=== PATIENT | female | born 1980 | race Caucasian/White ===

== ENCOUNTER 2016-10-28 09:31 | Day surgery (SDC) | payer OTHER ==
[~2016-10-28] VITALS: Ht 175.3 cm; Wt 135.5 kg
[~2016-10-28 09:31] MED LIST: CYCL5TAB PO; DARV PO; Z.0.NO CURRENT MEDS
[2016-10-28] MEDS ORDERED: FLUT50SP EACH NARE (10:03)
[2016-10-28] MEDS ORDERED: TRAZ50TA12 PO (10:03)
[2016-10-28] MEDS ORDERED: CETI10 PO (10:03)
[2016-10-28] MEDS ORDERED: MEDR150I11 IM (10:03)
[2016-10-28 10:06] VITALS: BP 163/103; PULSE 104; RESP 20; TEMP 98.2; O2SAT 95
[2016-10-28] MEDS ORDERED: SODIUM CHLORIDE FLUSH PRN IV FLUSH (10:15)
[2016-10-28] MEDS ORDERED: SODIUM CHLOR 0.9% 1000 ML IV SCH (10:15)
[2016-10-28 10:29] LABS: AUTOMATED NEUTROPHIL # 11.9 TH/MM3 (1.8-7.7); BASOPHIL % 0.3 % (0.0-2.0); EOSINOPHIL # 0.5 TH/MM3 (0-0.4); EOSINOPHIL % 3.2 % (0.0-4.0); HEMATOCRIT 40.5 % (35.0-46.0); HEMO FLAGS DIFF FINAL; LYMPH % 17.4 % (9.0-44.0); LYMPHOCYTE # 2.8 TH/MM3 (1.0-4.8); MEAN CELL VOLUME 83.4 FL (80.0-100.0); MEAN CORPUSCULAR HEMOGLOBIN 27.2 PG (27.0-34.0); MEAN CORPUSCULAR HGB CONC 32.5 % (32.0-36.0); MONO % 5.1 % (0.0-8.0); PLATELET COUNT 432 TH/MM3 (150-450); RED BLOOD COUNT 4.86 MIL/MM3 (4.00-5.30); RED CELL DISTRIBUTION WIDTH 14.3 % (11.6-17.2); WHITE BLOOD COUNT 16.1 TH/MM3 (4.0-11.0)
[2016-10-28] MEDS ORDERED: LIDOCAINE 1%/EPINEPHrine 1:100,000 SOLN 20 ML VIAL ONE (11:13)
[2016-10-28] MEDS ORDERED: fentaNYL CITRATE 250 MCG/5 ML AMP ONE (11:20)
[2016-10-28] MEDS ORDERED: MIDAZOLAM HCL 5 MG/5 ML VIAL ONE (11:20)
[2016-10-28] MEDS ORDERED: BUPIVACAINE HCL PF 0.75% 10 ML VIAL ONE (11:51)
[2016-10-28] MEDS ORDERED: LORazepam 2 MG/ML VIAL ONE (11:52)
[2016-10-28 12:20] VITALS: BP 157/82; PULSE 85; RESP 20; TEMP 97.7; O2SAT 96
[2016-10-28 12:35] VITALS: BP 158/83; PULSE 82; RESP 20; O2SAT 94
--- NOTE | 2016-10-28 12:42 | RADRPT ---
EXAM DATE/TIME: 10/28/2016 11:26 [place] COMPARISON: No previous studies available for comparison. INDICATIONS : Thrombocytosis. SEDATION TIME: 30 minutes BIOPSY SITE: Right MEDICATION(S): 1.) 5 mg midazolam (Versed) IV 2.) 250 mcg fentanyl (Sublimaze) IV 3.) 1 mg lorazepam (Ativan) IV DEVICE(S): 1.) 11 gauge Bone marrow biopsy needle MEDICAL HISTORY : None. SURGICAL HISTORY : Thyroidectomy. ENCOUNTER: Initial ACUITY: 1 day PAIN SCORE: 0/10 LOCATION: Right pelvis A total of one core specimen(s) were obtained and sent to the laboratory for pathologic evaluation. PROCEDURE: 1. CT guided bone marrow biopsy. 2. Conscious sedation with continuous EKG and oximetry monitoring. 3. EKG and oximetry remained stable throughout the procedure. Prior to the procedure informed consent was obtained. Any appropriate prior imaging studies were rev iewed. Using automated exposure control and adjustment of the mA and/or kV according to patient size , radiation dose was kept as low as reasonably achievable to obtain optimal diagnostic quality images . The site was prepped in a sterile fashion. Full sterile technique was used, including cap, mask, tara rile gloves and gown and a large sterile sheet. Hand hygiene and 2% chlorhexidine and/or betadine/al cohol prep was utilized per protocol for cutaneous antisepsis. The skin and subcutaneous tissues wer e infiltrated with local anesthetic solution. With CT guidance the previously identified target was localized. Biopsy was performed using the presc ribed needle as above. Following biopsy marrow aspiration was performed with repeat puncture. Adequa te hemostasis was obtained with compression at the puncture site. Follow-up CT scan reveals no hemorrhage. Conscious sedation was performed with the prescribed dosages and duration as above in the presence of an independent trained radiology nurse to assist in the monitoring of the patient. EKG and oximetry remained stable throughout the procedure. The patient tolerated the procedure well and there were no complications. The patient was sent to Radiology Outpatient Unit in stable condition. CONCLUSION: 1. Uncomplicated CT guided bone marrow aspirate. 2. Uncomplicated CT guided bone marrow biopsy. Zechariah Ann MD FACR on October 28, 2016 at 12:39 Board Certified Radiologist. This report was verified electronically.
[2016-10-28 13:03] LABS: BONE MARROW PROCESSING COMPLETE; IRON STAIN DONE; JENNER GIEMSA STAIN DONE
[2016-10-28 13:05] VITALS: BP 155/79; PULSE 80; RESP 20; O2SAT 100
[2016-10-28 13:35] VITALS: BP 159/92; PULSE 97; RESP 20; O2SAT 100
[2016-10-28] MEDS ORDERED: SODIUM CHLORIDE FLUSH BID IV FLUSH SCH (21:00)
== END 2016-10-28 14:00 | disposition home or self-care (01) ==
LOC: HRAD 09:31 → HRIP 09:45 → HRAD 14:00
PROVIDERS: ATTEND Internal Medicine Hematology & Oncology
DX: D75.89 Other specified diseases of blood and blood-forming organs (principal); D72.829 Elevated white blood cell count, unspecified
CPT/HCPCS: 38221; 77012; 85025; 85097; 88184; 88185; 88237; 88264; 88280; 88305; 88311; 88313; 99152; 99153; C1830; G0364; J2060; J2250; J3010

== ENCOUNTER 2018-02-26 09:43 | Inpatient (IN) ==
[2018-02-26] MEDS ORDERED: Bupivacaine/Epinephrine 0.5% Inj 50 ML Vial ONE (09:51)
[2018-02-26] MEDS ORDERED: Metoprolol Tartrate 25 MG Tablet PO SCH (10:45)
[2018-02-26] MEDS ORDERED: Chlorhexidine Gluconate 2% 1 Pack (2 Cloths) TOPICAL SCH (10:45)
[2018-02-26] MEDS ORDERED: Sodium Chlor 0.9% Inj 500 ML IV.SIG SCH (11:00)
[2018-02-26 11:30] LABS: Baso % (Auto) 0.3 % (0.0-2.0); Eos # (Auto) 0.4 th/mm3 (0.0-0.4); Eos % (Auto) 3.5 % (0.0-4.0); Hematocrit 38.3 % (35.0-46.0); Hemoglobin 12.7 gm/dL (11.6-15.3); Lymph % (Auto) 27.6 % (9.0-44.0); Mean Corpuscular HGB Conc 33.2 % (32.0-36.0); Mean Corpuscular Volume 84.4 fL (80.0-100.0); Mean Platelet Volume 7.4 fL (7.0-11.0); Mono # (Auto) 0.6 th/mm3 (0.0-0.9); Mono % (Auto) 5.9 % (0.0-8.0); Neut # (Auto) 6.8 th/mm3 (1.8-7.7); Neut % (Auto) 62.7 % (16.0-70.0); Platelet Count 362 th/mm3 (150-450); Red Blood Count 4.53 mil/mm3 (4.00-5.30); Red Cell Distribution Width 14.7 % (11.6-17.2); White Blood Count 10.9 th/mm3 (4.0-11.0)
[2018-02-26 11:37] LABS: INR 1.1 Ratio; Prothrombin Time 10.7 sec (9.8-11.6)
[2018-02-26] MEDS ORDERED: Neostigmine Inj 5 MG/5 ML Syringe IV.PUSH ONE (12:00)
[2018-02-26] MEDS ORDERED: Glycopyrrolate Inj 1 MG/5 ML Syringe IV.PUSH ONE (12:00)
[2018-02-26] MEDS ORDERED: Lidocaine PF 1% Inj 5 ML Syringe INFILTRATN ONE (12:00)
[2018-02-26 12:05] LABS: Alanine Aminotransferase 20 U/L (10-53); Albumin 3.5 g/dL (3.4-5.0); Anion Gap 10 meq/L (5-15); Aspartate Aminotransferase 10 U/L (15-37); Blood Urea Nitrogen 8 mg/dL (7-18); Calcium 8.6 mg/dL (8.5-10.1); Carbon Dioxide 24.3 meq/L (21.0-32.0); Chloride 109 meq/L (98-107); Glomerular Filtration Rate 83 mL/min (>89); Glucose,Random 86 mg/dL (74-106); Potassium 3.9 meq/L (3.5-5.1); Sodium 143 meq/L (136-145)
[2018-02-26 12:07] LABS: Alkaline Phosphatase 63 U/L (45-117); Total Protein 7.9 g/dL (6.4-8.2)
--- NOTE | 2018-02-26 12:23 | XR ---
EXAM DATE: 02/26/2018 12:15 PM EDT AGE/SEX: 37 years / Female INDICATIONS: Evaluate for pneumothorax, pneumonia, or other communicable disease. Pre-op cholecystec sandra. CLINICAL DATA: This is the patient's initial encounter. Patient reports that signs and symptoms have been present for 1 day and indicates a pain score of 0/10. MEDICAL/SURGICAL HISTORY: None. None. COMPARISON: [facility], XR CHEST PA AND LAT, 06/08/2016. . FINDINGS: Portable AP view of the chest demonstrates a normal-sized cardiac silhouette. No effusion, consolidat ion, or pneumothorax is identified. The bones and soft tissues demonstrate no acute finding. CONCLUSION: No acute cardiopulmonary abnormality is identified. Electronically signed by: Baljit Kinsey MD 02/26/2018 12:21 PM EDT
--- NOTE | 2018-02-26 13:09 | ECG ---
Date Performed: 02/26/2018 Time Performed: 11:02:26 PTAGE: 37 years EKG: Sinus rhythm WITH SINUS ARRHYTHMIA NORMAL ECG NO PREVIOUS TRACING DOCTOR: Sebastián Dempsey Interpretating Date/Time 02/26/2018 13:07:51
[2018-02-26] MEDS ORDERED: *Meperidine Inj 25 MG/ML Vial PERIprocedural Use ONLY ONE (13:45)
[2018-02-26] MEDS ORDERED: *Enalaprilat Inj 1.25 MG/ML Vial IV.PUSH ONE (13:46)
[2018-02-26] MEDS ORDERED: Morphine Inj 4 MG/ML Vial ONE (13:46)
[2018-02-26] MEDS ORDERED: fentaNYL Citrate Inj 100 MCG/2 ML Ampul ONE (13:46)
[2018-02-26] MEDS ORDERED: *morphine SULFATE 4 MG/ML PERIprocedure ONLY ONE ×2 (13:55→16:26)
[2018-02-26] MEDS ORDERED: *Labetalol HCl Inj 100 MG/20 ML Vial PERIprocedural Use ONLY IV.PUSH ONE (13:57)
[2018-02-26] MEDS: Sod Chloride 0.9% Inj 1,000 ML IV.SIG SCH ×2 (14:24→19:32)
[2018-02-26] MEDS ORDERED: *morphine SULFATE 10 MG/ML PERIprocedure ONLY ONE (14:26)
[2018-02-26] MEDS ORDERED: Naloxone Inj 0.4 MG/ML Vial IV.PUSH PRN (15:21)
[2018-02-26] MEDS ORDERED: Bisacodyl 10 MG Supp RECTAL PRN (15:21)
[2018-02-26] MEDS ORDERED: Post-op Orders (for Pharmacy) OTHER ONE (15:21)
--- NOTE | 2018-02-26 16:49 | MP ---
cc: Claire Patel MD DATE OF OPERATION: 02/26/2018 PREOPERATIVE DIAGNOSIS: Chronic cholecystitis, lithiasis. POSTOPERATIVE DIAGNOSIS: Chronic cholecystitis, lithiasis. PROCEDURE: Laparoscopic cholecystectomy. SURGEON: Dr. Patel. ANESTHESIA: General. ESTIMATED BLOOD LOSS: 30 mL DESCRIPTION OF PROCEDURE: The patient prepped and draped in usual fashion. Supraumbilical incision was made, deepened down to the fascia, which was grasped with Mihai clamps, elevated; and under direct vision abdomen was entered and Myrna cannula was placed. The abdomen insufflated with CO2 and the patient was placed in the reverse Trendelenburg with a left tilt. Abdomen was explored in quadrants. No other abnormalities are found. Gallbladder is stuck to the omentum. The subxiphoid and two right upper quadrants are placed and with 0 camera the abdomen visualized. Gallbladder was grasped by the dome, elevated and then the cystic duct and cystic artery carefully dissected with [place] dissector, triple ligated with Ligaclips; divided and gallbladder taken off the liver bed with spatula cautery instrument and then delivered through the subumbilical incision using EndoCatch bag. Abdomen was irrigated with copious amounts of saline, washed out; meticulous hemostasis assured. The instruments were withdrawn. Incision was closed with 0-Vicryl and 4-0 Monocryl. The patient tolerated the procedure well. MD KIRK Biggs/areli/kathleen , 03:14 PM , 03:21 PM
[2018-02-26] MEDS: Famotidine 20 MG Tablet PO SCH (20:29)
[2018-02-26] MEDS: Senna/Docusate Sodium 8.6/50 MG Tablet PO SCH (20:29)
[2018-02-27 05:05] LABS: Baso % (Auto) 0.2 % (0.0-2.0); Eos % (Auto) 0.1 % (0.0-4.0); Hematocrit 38.5 % (35.0-46.0); Hemoglobin 12.4 gm/dL (11.6-15.3); Lymph # (Auto) 1.5 th/mm3 (1.0-4.8); Lymph % (Auto) 9.6 % (9.0-44.0); Mean Corpuscular HGB Conc 32.2 % (32.0-36.0); Mean Corpuscular Hemoglobin 27.8 pg (27.0-34.0); Mean Corpuscular Volume 86.4 fL (80.0-100.0); Mean Platelet Volume 7.8 fL (7.0-11.0); Mono # (Auto) 0.7 th/mm3 (0.0-0.9); Mono % (Auto) 4.3 % (0.0-8.0); Neut # (Auto) 13.4 th/mm3 (1.8-7.7); Neut % (Auto) 85.8 % (16.0-70.0); Platelet Count 378 th/mm3 (150-450); Red Blood Count 4.46 mil/mm3 (4.00-5.30); Red Cell Distribution Width 14.3 % (11.6-17.2); White Blood Count 15.6 th/mm3 (4.0-11.0)
[2018-02-27] MEDS: Sod Chloride 0.9% Inj 1,000 ML IV.SIG SCH ×2 (05:16→06:01)
[2018-02-27 05:34] LABS: Albumin 3.2 g/dL (3.4-5.0); Total Protein 7.6 g/dL (6.4-8.2)
[2018-02-27] MEDS: Senna/Docusate Sodium 8.6/50 MG Tablet PO SCH (08:32)
[2018-02-27] MEDS: Famotidine 20 MG Tablet PO SCH (08:32)
--- NOTE | 2018-02-27 09:41 | P.PNVS ---
Subjective Subjective/Hospital Course: Status post laparoscopic cholecystectomy Port sites clean and dry Abdomen soft active bowel sounds patient tolerating diet will DC patient today Objective Vital Signs / I&O: Vital Signs 02/26/18 11:00 02/26/18 13:39 02/26/18 13:45 Temperature 98.8 F 98.2 F Pulse Rate 83 71 60 Respiratory Rate 20 18 22 Blood Pressure 138/92 H 191/85 H 185/81 H Pulse Oximetry 97 96 95 02/26/18 13:56 02/26/18 14:00 02/26/18 14:15 Temperature Pulse Rate 75 63 60 Respiratory Rate 20 15 19 Blood Pressure 186/83 H 154/69 H 155/79 H Pulse Oximetry 95 97 98 02/26/18 14:30 02/26/18 14:37 02/26/18 15:00 Temperature Pulse Rate 68 66 Respiratory Rate 13 13 Blood Pressure 144/73 H 140/65 Pulse Oximetry 96 98 97 02/26/18 16:00 02/26/18 16:04 02/26/18 17:00 Temperature Pulse Rate 72 82 Respiratory Rate 18 18 Blood Pressure 126/67 141/72 H Pulse Oximetry 95 95 94 L 02/26/18 17:45 02/26/18 20:00 02/27/18 00:00 Temperature 98.7 F 97.2 F L 97.7 F Pulse Rate 73 65 71 Respiratory Rate 17 20 20 Blood Pressure 151/70 H 147/77 H 143/70 H Pulse Oximetry 95 97 96 02/27/18 04:00 02/27/18 07:44 Temperature 97.6 F 97.7 F Pulse Rate 60 79 Respiratory Rate 18 18 Blood Pressure 143/72 H 132/72 Pulse Oximetry 98 97 Intake & Output 02/26/18 02/27/18 02/27/18 18:59 06:59 18:59 Intake Total 1200 / 1200 1240 / 1240 Output Total 180 / 180 Balance 1020 / 1020 1240 / 1240 Weight 131.4 kg 131.4 kg Intake: IV 1000 / 1000 1000 / 1000 LR 1000 mL Inj 1,000 ML @ 30 1000 / 1000 mls/hr IV.SIG .Q24H TOD Rx#: [id number] NS Inj 1,000 ML @ 60 mls/hr IV. 1000 / 1000 SIG .[id number] TOD Rx#:[id number] Oral 240 / 240 Anesthesia Amount 200 / 200 Output: Estimated Blood Loss 30 / 30 Urine Amount (Catheter) 150 / 150 Indwelling Urethral Catheter 150 / 150 Other: # Voids 2 Weight On Admission 131.4 kg Laboratory Results - last 24 hr 02/26/18 02/26/18 02/26/18 10:59 10:59 10:59 WBC 10.9 RBC 4.53 Hgb 12.7 Hct 38.3 MCV 84.4 MCH 28.0 MCHC 33.2 RDW 14.7 Plt Count 362 MPV 7.4 Prelim Diff (Auto) Neut % (Auto) 62.7 Lymph % (Auto) 27.6 [place] % (Auto) 5.9 Eos % (Auto) 3.5 Baso % (Auto) 0.3 Neut # (Auto) 6.8 Lymph # (Auto) 3.0 [place] # (Auto) 0.6 Eos # (Auto) 0.4 Baso # (Auto) 0.0 WBC Differential . 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 Differential Comment Auto diff final PT INR Sodium Potassium Chloride Carbon Dioxide Anion Gap BUN Creatinine Estimated GFR Random Glucose Calcium Total Bilirubin 0.4 Direct Bilirubin 0.1 Indirect Bilirubin 0.3 AST 31 ALT 29 Alkaline Phosphatase 65 Total Protein 7.6 Albumin 3.2 L Beta HCG, Quant Less than 1 Impressions Chest X-Ray 02/26/18 00:00 CONCLUSION: No acute cardiopulmonary abnormality is identified.
== END 2018-02-27 11:00 | disposition home or self-care (01) ==
LOC: HOR 09:43 → HSDI 15:21 → N07 18:02
PROVIDERS: ADMIT Surgery; ATTEND Surgery